=== PATIENT | female | born 1995 | race Two or more races ===

== ENCOUNTER 2018-10-12 11:52 | Emergency (ER) | payer OTHER ==
[~2018-10-12] VITALS: Ht 170.2 cm; Wt 77.1 kg
[2018-10-12 15:22] VITALS: BP 131/86
== END 2018-10-12 15:43 | disposition home or self-care (01) ==
LOC: ER 11:52
DX: R51 Headache (principal); R11.0 Nausea; R20.0 Anesthesia of skin
CPT/HCPCS: 70450; 81025